=== PATIENT | male | born 1995 | race Caucasian/White ===

== ENCOUNTER 2016-04-27 20:41 | Emergency (ER) | payer OTHER ==
[~2016-04-27] VITALS: Ht 193 cm; Wt 82.7 kg
[2016-04-27 20:58] VITALS: TEMP 98.3
[2016-04-27 22:51] VITALS: BP 121/80; PULSE 67
== END 2016-04-27 22:52 | disposition home or self-care (01) ==
LOC: COL.ER 20:41
DX: R07.89 Other chest pain (principal)